=== PATIENT | male | born 1945 | race Caucasian/White ===

== ENCOUNTER 2019-05-19 09:48 | Inpatient (IN) | payer MEDICARE ==
[~2019-05-19] VITALS: Ht 170.2 cm; Wt 82.1 kg
[2019-05-19 11:56] LABS: HEMATOCRIT 33.9 % (39.0-50.0); HEMOGLOBIN 10.9 g/dl (14.0-18.0); IMMATURE GRANULOCYTES 0.5 % (0.0-5.0); MEAN CELL VOLUME 90.4 fL CALC (80.0-100.0); MEAN CORPUSCULAR HGB 29.1 pG CALC (26.0-32.0); MEAN CORPUSCULAR HGB CONC 32.2 g/L CALC (32.0-36.0); NEUT# 4.86 thou/uL (1.82-7.42); RED BLOOD COUNT 3.75 mill/uL (4.70-6.10); RED CELL DISTRI WIDTH 14.2 % (11.5-15.5)
[2019-05-19 12:11] LABS: ALBUMIN 4.1 g/dL (3.2-5.0); ALKALINE PHOSPHATASE 124 u/l (38-126); ANION GAP 11 (6-22 (CALC)); BILIRUBIN, TOTAL 0.4 mg/dL (0.0-1.4); BUN 12 mg/dL (8-23); BUN/CREATININE RATIO 17 (12-20 (CALC)); CARBON DIOXIDE 25 mmol/l (22-30); CHLORIDE 104 mmol/l (95-108); CREATININE 0.7 mg/dL (0.7-1.3); GFR > 60 ML/MIN (>=60 (CALC)); GFR FOR AFR.AMER. > 60 ML/MIN (>=60 (CALC)); LIPASE 98 u/l (23-300); POTASSIUM 4.8 mmol/l (3.5-5.1); SGOT/AST 35 u/l (19-48); SODIUM 135 mmol/l (137-146); TOTAL PROTEIN 6.8 g/dL (6.3-8.2)
[2019-05-19] MEDS ORDERED: METFORMIN HCL500 M1 PO (13:44)
[2019-05-19] MEDS ORDERED: AZELASTINE HCL0.1 % (13:44)
[2019-05-19] MEDS ORDERED: GABAPENTIN100 MG PO (13:45)
[2019-05-19] MEDS ORDERED: TRELEGY ELLIPTA1 AER IN (13:46)
[2019-05-19] MEDS ORDERED: LOSARTAN POTAS100 MG PO (13:46)
[2019-05-19] MEDS ORDERED: BUSPAR10 M1 PO (13:46)
[2019-05-19] MEDS ORDERED: PANTOPRAZOLE SO40 M1 PO (13:47)
[2019-05-19] MEDS ORDERED: PRAVASTATIN SOD20 MG PO (13:47)
[2019-05-19] MEDS ORDERED: CARVEDILOL6.25 MG PO (13:47)
[2019-05-19] MEDS ORDERED: BASAGLAR K100 UNIT/M SC (13:48)
[2019-05-19 15:19] VITALS: BP 157/82
[2019-05-19 19:04] VITALS: BP 164/93
[2019-05-20 03:36] VITALS: BP 145/74
[2019-05-20 06:40] LABS: HEMATOCRIT 31.7 % (39.0-50.0); HEMOGLOBIN 10.1 g/dl (14.0-18.0); IMMATURE GRANULOCYTES 0.5 % (0.0-5.0); MEAN CELL VOLUME 91.1 fL CALC (80.0-100.0); MEAN CORPUSCULAR HGB CONC 31.9 g/L CALC (32.0-36.0); NEUT# 4.12 thou/uL (1.82-7.42); RED BLOOD COUNT 3.48 mill/uL (4.70-6.10); RED CELL DISTRI WIDTH 14.4 % (11.5-15.5)
[2019-05-20 07:03] LABS: ANION GAP 7 (6-22 (CALC)); BUN 9 mg/dL (8-23); BUN/CREATININE RATIO 13 (12-20 (CALC)); CARBON DIOXIDE 29 mmol/l (22-30); CHLORIDE 104 mmol/l (95-108); CREATININE 0.7 mg/dL (0.7-1.3); GFR > 60 ML/MIN (>=60 (CALC)); GFR FOR AFR.AMER. > 60 ML/MIN (>=60 (CALC)); MAGNESIUM 1.4 mg/dL (1.6-2.3); POTASSIUM 4.5 mmol/l (3.5-5.1); SODIUM 135 mmol/l (137-146)
[2019-05-20 08:00] VITALS: BP 140/65
[2019-05-20 11:29] VITALS: BP 158/89
[2019-05-20 16:06] VITALS: BP 140/74
[2019-05-20 19:16] VITALS: BP 125/71
[2019-05-21 04:09] VITALS: BP 136/82
[2019-05-21 07:39] VITALS: BP 125/71
[2019-05-21 15:40] VITALS: BP 114/62
[2019-05-21 20:10] VITALS: BP 120/71
[2019-05-22 04:00] VITALS: BP 109/57
[2019-05-22 07:57] VITALS: BP 132/75
[2019-05-22 11:41] LABS: URINE BILIRUBIN - DIPSTICK NEGATIVE (NEGATIVE); URINE BLOOD DIPSTICK NEGATIVE (NEGATIVE); URINE COLOR YELLOW; URINE GLUCOSE - DIPSTICK NEGATIVE (NEGATIVE); URINE KETONE NEGATIVE (NEGATIVE); URINE LEUK ESTERASE NEGATIVE (NEGATIVE); URINE NITRITE - DIPSTICK NEGATIVE (Negative); URINE PROTEIN - DIPSTICK NEGATIVE (NEG-TRACE); URINE SPECIFIC GRAVITY 1.015
[2019-05-22] MEDS ORDERED: LORTAB 7.57.5 MG PO (13:40)
[2019-05-22] MEDS ORDERED: LYRICA75 MG PO (13:40)
[2019-05-22 14:06] LABS: HEMATOCRIT 31.7 % (39.0-50.0); HEMOGLOBIN 10.4 g/dl (14.0-18.0); IMMATURE GRANULOCYTES 0.3 % (0.0-5.0); MEAN CELL VOLUME 90.3 fL CALC (80.0-100.0); MEAN CORPUSCULAR HGB 29.6 pG CALC (26.0-32.0); MEAN CORPUSCULAR HGB CONC 32.8 g/L CALC (32.0-36.0); NEUT# 6.65 thou/uL (1.82-7.42); RED BLOOD COUNT 3.51 mill/uL (4.70-6.10); RED CELL DISTRI WIDTH 14.2 % (11.5-15.5)
[2019-05-22 14:51] LABS: ALBUMIN 3.7 g/dL (3.2-5.0); ALKALINE PHOSPHATASE 127 u/l (38-126); BILIRUBIN, TOTAL 0.5 mg/dL (0.0-1.4); BUN 15 mg/dL (8-23); BUN/CREATININE RATIO 18 (12-20 (CALC)); CARBON DIOXIDE 27 mmol/l (22-30); CHLORIDE 96 mmol/l (95-108); CREATININE 0.8 mg/dL (0.7-1.3); GFR > 60 ML/MIN (>=60 (CALC)); GFR FOR AFR.AMER. > 60 ML/MIN (>=60 (CALC)); MAGNESIUM 1.5 mg/dL (1.6-2.3); SGOT/AST 24 u/l (19-48); SODIUM 129 mmol/l (137-146); TOTAL PROTEIN 6.3 g/dL (6.3-8.2)
[2019-05-22 15:00] VITALS: BP 105/60
[2019-05-22 15:20] LABS: ANION GAP 11 (6-22 (CALC)); POTASSIUM 5.2 mmol/l (3.5-5.1)
[2019-06-12] MEDS ORDERED: ASPIRIN325 MG PO (08:01)
[2019-06-12] MEDS ORDERED: COLESEVELAM HY625 MG PO (08:01)
[2019-06-12] MEDS ORDERED: OMEPRAZOLE DR40 MG PO (08:02)
[2019-06-12] MEDS ORDERED: GABAPENTIN100 MG PO (08:02)
[2019-06-12] MEDS ORDERED: TRAMADOL HCL50 MG PO (08:03)
[2019-06-12] MEDS ORDERED: SLOW-MAG PO (08:03)
[2019-06-12] MEDS ORDERED: VITAMIN D31000 UNI1 PO (08:03)
[2019-06-12] MEDS ORDERED: ONDANSETRON4 MG PO (08:04)
[2019-06-12] MEDS ORDERED: FOLIC ACID1 MG PO (10:44)
== END 2019-05-22 17:50 | disposition home or self-care (01) | DRG 74 ==
LOC: ED 09:48 → ED-I 13:24 → ED 13:30 → MS2 13:31
PROVIDERS: Nurse Practitioner Family; ADMIT Internal Medicine; ATTEND Internal Medicine
DX: B02.29 Other postherpetic nervous system involvement (principal); I10 Essential (primary) hypertension; E11.9 Type 2 diabetes mellitus without complications; I25.10 Atherosclerotic heart disease of native coronary artery without angina pectoris; Z95.5 Presence of coronary angioplasty implant and graft; Z87.891 Personal history of nicotine dependence; Z79.4 Long term (current) use of insulin
CPT/HCPCS: G0378; J3475

== ENCOUNTER 2021-02-24 04:53 | Observation (INO) | payer MEDICARE ==
[~2021-02-24] VITALS: Ht 167.6 cm; Wt 85.0 kg
[~2021-02-24 04:53] MED LIST: ASPIRIN325 MG PO; AZELASTINE HCL0.1 %; BASAGLAR K100 UNIT/M SC; BUSPAR10 M1 PO; CARVEDILOL6.25 MG PO; COLESEVELAM HY625 MG PO; FOLIC ACID1 MG PO; GABAPENTIN100 MG PO; LORTAB 7.57.5 MG PO; LOSARTAN POTAS100 MG PO; LYRICA75 MG PO; METFORMIN HCL500 M1 PO; OMEPRAZOLE DR40 MG PO; ONDANSETRON4 MG PO; PANTOPRAZOLE SO40 M1 PO; PRAVASTATIN SOD20 MG PO; SLOW-MAG PO; TRAMADOL HCL50 MG PO; TRELEGY ELLIPTA1 AER IN; VITAMIN D31000 UNI1 PO
[2021-02-24 05:19] LABS: HEMATOCRIT 30.8 % (39.0-50.0); HEMOGLOBIN 9.3 g/dl (14.0-18.0); IMMATURE GRANULOCYTES 0.5 % (0.0-5.0); MEAN CELL VOLUME 86.8 fL CALC (80.0-100.0); MEAN CORPUSCULAR HGB 26.2 pG CALC (26.0-32.0); MEAN CORPUSCULAR HGB CONC 30.2 g/dL CAL (32.0-36.0); NEUT# 5.38 thou/uL (1.82-7.42); RED BLOOD COUNT 3.55 mill/uL (4.70-6.10); RED CELL DISTRI WIDTH 16.7 % (11.5-15.5)
[2021-02-24 05:34] LABS: ALBUMIN 3.9 g/dL (3.2-5.0); ALKALINE PHOSPHATASE 149 u/l (38-126); AMYLASE 88 u/l (30-110); ANION GAP 11 (6-22 (CALC)); BILIRUBIN, TOTAL 0.4 mg/dL (0.0-1.4); BUN 15 mg/dL (8-23); BUN/CREATININE RATIO 14 (12-20 (CALC)); CARBON DIOXIDE 26 mmol/l (22-30); CHLORIDE 105 mmol/l (95-108); CREATININE 1.1 mg/dL (0.7-1.3); GFR > 60 ML/MIN (>=60 (CALC)); GFR FOR AFR.AMER. > 60 ML/MIN (>=60 (CALC)); LIPASE 129 u/l (23-300); POTASSIUM 4.5 mmol/l (3.5-5.1); SGOT/AST 29 u/l (19-48); TOTAL PROTEIN 6.8 g/dL (6.3-8.2)
[2021-02-24 05:37] LABS: D-DIMER 1.02 mg/L (0.19-0.60)
[2021-02-24] MEDS ORDERED: GABAPENTIN300 M2 PO (05:39)
[2021-02-24] MEDS ORDERED: SERTRALINE HYDR50 MG (05:40)
[2021-02-24 05:41] LABS: ACT PARTIAL THROMBO TIME 26.1 SECONDS (20.0-32.5)
[2021-02-24] MEDS ORDERED: AVAPRO150 MG PO (05:41)
[2021-02-24] MEDS ORDERED: SPIRIVA RE2.5 MCG/AC (05:42)
[2021-02-24] MEDS ORDERED: JARDIANCE25 MG (05:42)
[2021-02-24] MEDS ORDERED: SYMBICORT1 AE1 IN (05:43)
[2021-02-24] MEDS ORDERED: LANTUS SOLOSTAR SC (05:44)
[2021-02-24] MEDS ORDERED: FISH OIL1400 MG PO ×2 (05:44→17:10)
[2021-02-24] MEDS ORDERED: FOLATE400 MCG (05:45)
[2021-02-24] MEDS ORDERED: B121000 MCG (05:45)
[2021-02-24 05:46] LABS: MYOGLOBIN 34 ng/mL (0 - 121)
[2021-02-24] MEDS ORDERED: D350 MCG (05:46)
[2021-02-24 06:20] LABS: SODIUM 137 mmol/l (137-146)
[2021-02-24 08:43] VITALS: BP 136/68
[2021-02-24 08:55] LABS: CHOLESTEROL HDL RATIO 2.5 (<4.4 (CALC)); MAGNESIUM 1.4 mg/dL (1.6-2.3)
[2021-02-24 14:43] VITALS: BP 119/69
[2021-02-24] MEDS ORDERED: SERTRALINE HYDR50 MG PO (16:57)
[2021-02-24] MEDS ORDERED: SERTRALINE50 MG PO (16:57)
[2021-02-24] MEDS ORDERED: LASIX 40 MG TAB40 MG PO (16:59)
[2021-02-24] MEDS ORDERED: COREG12.5 MG PO (17:03)
[2021-02-24] MEDS ORDERED: JARDIANCE25 MG PO (17:05)
[2021-02-24] MEDS ORDERED: LANTUS100 UNIT SC (17:09)
[2021-02-24] MEDS ORDERED: BAYER ASPIRIN E81 MG PO (17:11)
[2021-02-24] MEDS ORDERED: B-122500 MCG PO (17:14)
[2021-02-24] MEDS ORDERED: FOLATE400 MCG PO (17:21)
[2021-02-24] MEDS ORDERED: D350 MCG PO (17:22)
[2021-02-24 19:20] VITALS: BP 129/73
[2021-02-24 23:45] VITALS: BP 146/76
[2021-02-25 03:50] VITALS: BP 130/80
[2021-02-25 07:29] VITALS: BP 129/73
[2021-02-25 10:24] VITALS: BP 129/76
== END 2021-02-25 11:30 | disposition home or self-care (01) ==
LOC: ED 04:53 → ED-I 06:26 → ED 06:40 → MS2 06:41
PROVIDERS: Family Medicine; Nurse Practitioner; ADMIT Internal Medicine; ATTEND Internal Medicine
DX: R07.2 Precordial pain (principal); I10 Essential (primary) hypertension; E11.9 Type 2 diabetes mellitus without complications; F41.1 Generalized anxiety disorder; I25.2 Old myocardial infarction; Z95.5 Presence of coronary angioplasty implant and graft; Z79.84 Long term (current) use of oral hypoglycemic drugs; Z79.4 Long term (current) use of insulin; Z87.891 Personal history of nicotine dependence; Z20.822 Contact with and (suspected) exposure to COVID-19
CPT/HCPCS: G0378; J1650; J3475; Q9967

== ENCOUNTER 2021-05-09 06:54 | Day surgery (SDC) | payer MEDICARE ==
[~2021-05-09] VITALS: Ht 167.6 cm; Wt 82.1 kg
[~2021-05-09 06:54] MED LIST changes: +AVAPRO150 MG PO; +B-122500 MCG PO; +B121000 MCG; +BAYER ASPIRIN E81 MG PO; +COREG12.5 MG PO; +D350 MCG; +D350 MCG PO; +FISH OIL1400 MG PO; +FOLATE400 MCG; +FOLATE400 MCG PO; +GABAPENTIN300 M2 PO; +IRON (FERROUS S50 MG PO; +JARDIANCE25 MG; +JARDIANCE25 MG PO; +LANTUS SOLOSTAR SC; +LANTUS100 UNIT SC; +LASIX 40 MG TAB40 MG PO; +MAGNEBIND400 MG PO; +SERTRALINE HYDR50 MG; +SERTRALINE HYDR50 MG PO; +SERTRALINE50 MG PO; +SPIRIVA RE2.5 MCG/AC IN; +SYMBICORT1 AE1 IN
[2021-05-09 08:32] VITALS: BP 119/58
[2021-05-12] MEDS ORDERED: OMEPRAZOLE20 MG PO (11:10)
[2021-05-12] MEDS ORDERED: Levaquin PO (11:10)
[2021-05-12] MEDS ORDERED: AMOXICILLIN500 MG PO (11:11)
== END 2021-05-09 09:00 | disposition home or self-care (01) ==
LOC: ENDO 06:54 → ORM 08:00 → ENDO 08:00
PROVIDERS: ATTEND Surgery
PROC: 0DB68ZX Excision of Stomach, Via Natural or Artificial Opening Endoscopic, Diagnostic (ICD-10-PCS; principal; 2021-05-09)
DX: K29.50 Unspecified chronic gastritis without bleeding (principal); B96.81 Helicobacter pylori [H. pylori] as the cause of diseases classified elsewhere; D50.9 Iron deficiency anemia, unspecified; K21.9 Gastro-esophageal reflux disease without esophagitis; E11.9 Type 2 diabetes mellitus without complications; Z79.4 Long term (current) use of insulin; Z79.84 Long term (current) use of oral hypoglycemic drugs